=== PATIENT | male | born 1955 | race American Indian/Alaskan Native ===

== ENCOUNTER 2019-01-06 09:50 | Emergency (ER) | payer MEDICARE ==
[2019-01-06 10:08] VITALS: BP 170/104
--- NOTE | 2019-01-06 11:10 | Emergency Department Report ---
ED Recheck HPI - General Chief Complaint: Medical Clearance Stated Complaint: MEDICATION REFILL/BP Time Seen by Provider: 01/06/19 11:09 Source: patient, family Mode of arrival: Ambulatory Limitations: No Limitations - History of Present Illness Initial Comments: This is a 63-year-old male nontoxic, well nourished in appearance, no acute signs of distress presents to the ED for medication refill. Patient stated he is currently out of his lisinopril and pravastatin. Patient stated he is currently asymptomatic. Patient denies any chest pain, front of breath, fever, chills, nausea, vomiting, headache, stiff neck, numbness or tingling. Patient denies any allergies with past medical history of hypertension. MD Complaint: medication refill request -: days(s) Returns Today for: request for prescription Symptoms Since Prior Visit: no new symptoms Associated Symptoms: none. denies: fever, chills, chest pain, shortness of breath, rash, malaise, [place], abdominal pain - Related Data Previous Rx's Medication Instructions Recorded Last Taken Type Lisinopril/Hydrochlorothiazide 1 each PO DAILY #60 tablet 01/14/14 Unknown Rx [Zestoretic 10-12.5 mg] Lisinopril/Hydrochlorothiazide 1 tab PO QDAY #30 tab 01/06/19 Unknown Rx [Zestoretic 20-12.5 mg] Pravastatin [Pravachol] 40 mg PO QHS #30 tablet 01/06/19 Unknown Rx Allergies Allergy/AdvReac Type Severity Reaction Status Date / Time No Known Allergies Allergy Unverified 01/14/14 07:45 ED Review of Systems ROS: Stated complaint: MEDICATION REFILL/BP Other details as noted in HPI Constitutional: denies: chills, fever Eyes: denies: eye pain, eye discharge, vision change ENT: denies: ear pain, throat pain Respiratory: denies: cough, shortness of breath, wheezing Cardiovascular: denies: chest pain, palpitations Endocrine: no symptoms reported Gastrointestinal: denies: abdominal pain, nausea, diarrhea Genitourinary: denies: urgency, dysuria Musculoskeletal: denies: back pain, joint swelling, arthralgia Skin: denies: rash, lesions Neurological: denies: headache, weakness, paresthesias Psychiatric: denies: anxiety, depression Hematological/Lymphatic: denies: easy bleeding, easy bruising ED Past Medical Hx - Past Medical History Previous Medical History?: Yes Hx Hypertension: Yes - Surgical History Past Surgical History?: No - Social History Smoking Status: Never Smoker Substance Use Type: Alcohol, Prescribed - Medications Home Medications: Home Medications Medication Instructions Recorded Confirmed Last Taken Type Lisinopril/Hydrochlorothiazide 1 each PO DAILY #60 tablet 01/14/14 Unknown Rx [Zestoretic 10-12.5 mg] Lisinopril/Hydrochlorothiazide 1 tab PO QDAY #30 tab 01/06/19 Unknown Rx [Zestoretic 20-12.5 mg] Pravastatin [Pravachol] 40 mg PO QHS #30 tablet 01/06/19 Unknown Rx ED Physical Exam - General Limitations: No Limitations General appearance: alert, in no apparent distress - Head Head exam: Present: atraumatic, normocephalic - Respiratory Respiratory exam: Present: normal lung sounds bilaterally. Absent: respiratory distress, wheezes, rales, rhonchi, stridor - Cardiovascular Cardiovascular Exam: Present: regular rate, normal rhythm, normal heart sounds. Absent: systolic murmur, diastolic murmur, rubs, gallop - Extremities Exam Extremities exam: Present: normal inspection, full ROM, normal capillary refill. Absent: tenderness, joint swelling - Back Exam Back exam: Present: normal inspection, full ROM. Absent: tenderness - Neurological Exam Neurological exam: Present: alert, oriented X3, normal gait - Psychiatric Psychiatric exam: Present: normal affect, normal mood - Skin Skin exam: Present: warm, dry, intact, normal color. Absent: rash ED Course Vital Signs 01/06/19 10:04 Temperature 98.4 F Pulse Rate 100 H Respiratory 20 Rate Blood Pressure 170/104 O2 Sat by Pulse 99 Oximetry - Reevaluation(s) Reevaluation #1: 01/06/19 11:27 Patient is speaking in full sentences with no signs of distress noted. ED Recheck MDM - Medical Decision Making 63-year-old male that presented medication refill. Patient is stable and was examined by me. I will refill patient's medication as he does have his empty medication bottles with dosage, route and frequency. Patient was instructed to keep a daily diary of blood pressure and to presented to primary care doctor. Patient was instructed to Follow-up with a primary care doctor in 3-5 days or if symptoms worsen and continue return to emergency room as soon as possible. At time of discharge, the patient does not seem toxic or ill in appearance. No acute signs of distress noted. Patient agrees to discharge treatment plan of care. No further questions noted by the patient. Critical care attestation.: If time is entered above; I have spent that time in minutes in the direct care of this critically ill patient, excluding procedure time. ED Disposition Clinical Impression: Medication refill Hypertension Qualifiers: Hypertension type: unspecified Qualified Code(s): I10 - Essential (primary) hypertension Disposition: - TO HOME OR SELFCARE Is pt being admited?: No Does the pt Need Aspirin: No Condition: Stable Instructions: Hypertensive Crisis (ED), Hypertension (ED) Additional Instructions: Follow-up with a primary care doctor in 3-5 days or if symptoms worsen and continue return to emergency room as soon as possible. Prescriptions: Pravastatin [Pravachol] 40 mg PO QHS #30 tablet Lisinopril/Hydrochlorothiazide [Zestoretic 20-12.5 mg] 1 tab PO QDAY #30 tab Referrals: PRIMARY MD LÁZARO [Referring] - 3-5 Days SRAVANI CLIFFORD MD [Staff Physician] - 3-5 Days [facility] [Outside] - 3-5 Days [facility] [Outside] - 3-5 Days Forms: Work/School Release Form(ED)
== END 2019-01-06 11:53 | disposition home or self-care (01) ==
LOC: ED 09:50
DX: I10 Essential (primary) hypertension (principal); Z76.0 Encounter for issue of repeat prescription